=== PATIENT | female | born 1975 | race Caucasian/White ===

== ENCOUNTER 2017-02-12 09:35 | Day surgery (SDC) | payer MEDICAID ==
[~2017-02-12] VITALS: Ht 154.9 cm; Wt 61.5 kg
[2017-02-12] VITALS (12 sets, daily range): BP systolic 113–135; BP diastolic 52–69; PULSE 58–80; RESP 11–20; Ht 154.9 cm; Wt 61.5 kg
[~2017-02-12 09:35] MED LIST: SUCCINYLCHOLINE CHLORIDE 100 MG/5 ML SYG IV ONE
[2017-02-12] MEDS ORDERED: PROPOFOL 20 ML ONE (11:45)
[2017-02-12] MEDS ORDERED: CEFAZOLIN 1 GM INJ ONE (11:45)
[2017-02-12] MEDS ORDERED: ROCURONIUM 50 MG INJ ONE (11:45)
[2017-02-12] MEDS ORDERED: GLYCOPYRROLATE 0.4 MG INJ ONE (11:45)
[2017-02-12] MEDS ORDERED: MIDAZOLAM 1 MG/ML 2 ML INJ ONE (11:45)
[2017-02-12] MEDS ORDERED: FENTAnyl 50 MCG/ML VIAL ONE ×2 (11:45→12:38)
[2017-02-12] MEDS ORDERED: NEOSTIGMINE 3 MG/3 ML SYRINGE ONE (11:45)
[2017-02-12] MEDS ORDERED: ONDANSETRON 4 MG INJ ONE ×2 (11:45→12:38)
[2017-02-12] MEDS ORDERED: DEXAMETHASONE 4 MG/ML 1 ML INJ ONE (11:45)
[2017-02-12] MEDS ORDERED: IBUPROFEN 600 MG TAB PO PRN (12:00)
[2017-02-12] MEDS ORDERED: KETOROLAC 30 MG INJ IV PRN (12:00)
[2017-02-12] MEDS ORDERED: KETOROLAC 30 MG INJ ONE (12:02)
[2017-02-12] MEDS ORDERED: METOCLOPRAMIDE 10 MG INJ ONE (12:02)
[2017-02-12] MEDS ORDERED: OXYTOCIN 10 UNIT INJ ONE (12:02)
--- NOTE | 2017-02-12 12:25 | OPR ---
Date/Time of Note Date/Time of Note DATE: 02/12/17 TIME: 12:16 Operative Report Free Text/Dictation 41 years old diagnosed with missed at 8 weeks gestation admitted for dilatation and suction curettage Procedure Date: Feb 12, 2017 Preoperative Diagnosis Missed at 8 weeks gestation Postoperative Diagnosis Same as above Operation/Procedure Performed Dilatation and suction curette Surgeon see signature line Manugrapher None Anesthesia Type: general Anesthesiologist: Dale Bellamy M.D. Estimated Blood Loss: 10 - 50 ml's Transfusion none Specimen Products of conception Grafts/Implants none Tubes/Drains None Complications none Pt Condition Post Procedure: stable Indications Missed Procedure Description Under satisfactory general anesthesia patient prepped and draped and placed in dorsal lithotomy position bimanual pelvic examination ,relaxed vaginal outlet moderate cystorectocele, cervix multiparous, uterus 8-9 weeks size adnexa not palpable Weighted speculum introduced into the vagina., Anterior cervical lip grasped by Jacky tenaculum uterine cavity sounded measured 12 cm, cervical dilatation further advanced by Hanks dilator, evacuation of products of conception done using Vacurette #9 followed with medium-sized sharp curetting all the specimen in toto submitted to the pathology, patient received 30 units of Pitocin through IV infusion estimated blood loss approximately 50 cc, patient tolerated procedure well transferred to recovery room in a good condition MARTÍN GAINES MD Feb 12, 2017 12:25
[2017-02-12] MEDS ORDERED: HYDROmorphONE (0.2 MG/ML) 10ML SYG IV PRN ×2 (13:00)
[2017-02-12] MEDS ORDERED: ONDANSETRON 4 MG INJ IV PRN (13:00)
[2017-02-12] MEDS ORDERED: MEPERIDINE 25 MG INJ IV PRN (13:00)
[2017-02-12] MEDS ORDERED: OXYCODONE/ACETAMINOPHEN (5/325) TAB PO PRN (13:00)
[2017-02-12] MEDS ORDERED: FENTAnyl 50 MCG/ML VIAL IV PRN ×2 (13:00)
== END 2017-02-12 13:55 | disposition home or self-care (01) ==
LOC: SDS 09:35
PROVIDERS: ATTEND Obstetrics & Gynecology
DX: O02.1 Missed abortion (principal)
CPT/HCPCS: 59820; J0690; J1100; J1885; J2250; J2405; J2590; J2765; J3010; Z7512; Z7610; J2710